=== PATIENT | male | born 1970 | race African-American/Black ===

== ENCOUNTER 2021-10-29 13:06 | Emergency (ER) | payer BC, SELFPAY ==
[2021-10-29 13:19] VITALS: BP 132/87; PULSE 98; RESP 16; TEMP 36.3; O2SAT 99
--- NOTE | 2021-10-29 13:27 | ED.URI ---
HPI - URI/Sore Throat General Chief Complaint: Upper Respiratory Infection Stated Complaint: headache, chest pain, sore throat Time Seen by Provider: 10/29/21 13:27 Source: patient Mode of arrival: ambulatory Limitations: no limitations History of Present Illness HPI Narrative: 51 yo M presents with c/o cough, nasal congestion, sore throat, bodyaches, fatigue and headache for 2 days. Did two home covid tests that were both negative. Wanted us to test him here. unsure if he did test right. Not taking any OTC meds to treat his symptoms. denies SOB/CP. is covid vaccinted. Recently got home from [place]. All systems reviewed and negative except as noted above. Related Data Home Medications Medication Instructions Recorded Confirmed BD Insulin Syringe U-500 10/29/21 10/29/21 amlodipine 10/29/21 labetalol 10/29/21 levothyroxine 10/29/21 losartan 10/29/21 Allergies Allergy/AdvReac Type Severity Reaction Status Date / Time ketoprofen Allergy Unknown Unknown Verified 10/29/21 13:15 celecoxib [From Celebrex] Allergy Hives Verified 10/29/21 13:15 lisinopril Allergy Unknown Verified 10/29/21 13:15 Review of Systems Review of Systems: CONSTITUTIONAL: Denies fever, chills, or sweats. EYES: Denies visual changes, redness, or discharge. ENT: Reports rhinorrhea, congestion, sore throat. Denies otalgia. CARDIOVASCULAR: Denies chest pain, palpitations, or edema. RESPIRATORY: Reports cough. Denies dyspnea. GASTROINTESTINAL: Denies abdominal pain, nausea, vomiting, or diarrhea. GENITOURINARY: Denies dysuria or hematuria. SKIN: Denies rash or itching. MUSCULOSKELETAL: Denies back pain, joint pain, or myalgia. NEUROLOGIC: Reports headache. Denies numbness, or weakness. PSYCHIATRIC: Denies anxiety or depression. All other systems reviewed are negative, except as documented in HPI. PMFSH Comments At time of signature, agree with nursing past medical, surgical, social and family history. There is no relevant family history pertinent to the presenting complaint. Exam Narrative: GENERAL: This is a well-nourished, well-developed patient, in no apparent distress. HEAD: normocephalic, atraumatic. EYES: PERRL. Sclera clear/white. Vision is grossly intact. EARS: External ears normal, auditory canals clear and without drainage, TMs normal without perforation. Hearing grossly intact. NOSE: External nose normal with clear nasal drainage, erythema to both nares. THROAT: Mucous membranes moist, mild erythema to posterior pharynx with clear postnasal drainage. NECK: Neck supple, non-tender without lymphadenopathy, masses or thyromegaly. CARDIOVASCULAR: Regular rate and rhythm without murmurs, gallops, or rubs. RESPIRATORY: Clear to auscultation. Breath sounds equal bilaterally. No wheezes, rales, or rhonchi. SKIN: warm, Dry, intact with no suspicious lesions or rash, good texture and turgor. NEURO: awake, alert, and oriented to person, place and time. There were no obvious focal neurologic abnormalities. EXTREMITIES: No joint tenderness, effusion, or edema noted. Course Course Level of Care: Express Care Visit Vital Signs Vital signs: Vital Signs Temperature 36.3 C L 10/29/21 13:19 Pulse Rate 98 10/29/21 13:19 Respiratory Rate 16 10/29/21 13:19 Blood Pressure 132/87 10/29/21 13:19 Pulse Oximetry 99 10/29/21 13:19 Temperature 36.3 C L 10/29/21 13:19 Pulse Rate 98 10/29/21 13:19 Respiratory Rate 16 10/29/21 13:19 Blood Pressure 132/87 10/29/21 13:19 Pulse Oximetry 99 10/29/21 13:19 Reviewed MDM - URI/Sore Throat MDM Narrative Medical decision making narrative: Patient is aware of diagnosis, understands and agrees to treatment plan. Anticipatory guidance given. Patient agrees to follow-up as directed and is aware of reasons to seek care at the emergency department. Portions of this record may have been created with voice recognition software Differential Diagnosis Differential diagnos
== END 2021-10-29 13:42 | disposition home or self-care (01) ==
PROVIDERS: Emergency Provider Nurse Practitioner Family
DX: U07.1 COVID-19 (principal); E78.00 Pure hypercholesterolemia, unspecified; I10 Essential (primary) hypertension; E11.9 Type 2 diabetes mellitus without complications
CPT/HCPCS: 87426; 99203; C9803; G0463